=== PATIENT | male | born 1965 | race African-American/Black ===

== ENCOUNTER 2019-03-21 08:13 | Inpatient (IN) | payer MEDICARE, OTHER ==
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
[2019-03-21] MEDS ORDERED: DEXTROSE 50%-WATER 25 GM/50 ML DISP.SYRIN ONE ×2 (09:07→09:44)
[2019-03-21] MEDS ORDERED: DEXTROSE 50%-WATER - 25 GM/50 ML VIAL IVPUSH ONE ×3 (09:07→10:21)
[2019-03-21 09:13] LABS: BASO % 0.4 % (0-2.0); EOS % 2.2 % (0-4.5); HEMATOCRIT 28.5 % (35.4-49); HEMOGLOBIN 9.3 GM/dL (11.7-16.9); LYMPH % 35.1 % (8-40); MCH 29.3 pg (25.7-33.7); MCHC 32.7 g/dl (32.0-35.9); MEAN CELL VOLUME 89.7 fl (80-96); MONO % 12.4 % (3.8-10.2); NEUT % 49.9 % (42.8-82.8); PLATELET COUNT 191 K/MM3 (134-434); RBC 3.18 M/mm3 (4.00-5.60); RDW 13.8 % (11.9-15.9); WHITE BLOOD COUNT 4.8 K/mm3 (4.0-10.0)
[2019-03-21 09:17] VITALS: BMI 27.3
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
[2019-03-21] MEDS: DEXTROSE 5%-0.45% SALINE 1,000 ML IV SCH ×2 (10:25→22:33)
[2019-03-21 10:36] LABS: ALBUMIN 2.4 g/dl (3.4-5.0); ALK PHOS 73 U/L (45-117); ANION GAP 6 MMOL/L (8-16); BILIRUBIN,TOTAL 0.2 mg/dL (0.2-1); BLOOD UREA NITROGEN 46 mg/dL (7-18); CALCIUM 7.9 mg/dL (8.5-10.1); CHLORIDE 110 mmol/L (98-107); CO2 24 mmol/L (21-32); CREATININE 2.9 mg/dL (0.55-1.3); POTASSIUM 4.1 mmol/L (3.5-5.1); SGOT/AST 35 U/L (15-37); SGPT/ALT 28 U/L (13-61); SODIUM 140 mmol/L (136-145); TOT PROT 6.1 g/dl (6.4-8.2)
[2019-03-21 10:40] LABS: GLUCOSE,RANDOM 38 mg/dL (74-106)
[2019-03-21 10:55] LABS: COCAINE, UR NEGATIVE ng/ml (CUTOFF=300); METHADONE, UR NEGATIVE ng/ml (CUTOFF=300); OPIATES, URI NEGATIVE ng/ml (CUTOFF=300); PHENCYCLIDINE,URINE NEGATIVE ng/ml (CUTOFF=25); URINE AMPHETAMINES NEGATIVE ng/ml (CUTOFF=500); URINE BARBITURATES NEGATIVE ng/ml (CUTOFF=200); URINE BENZODIAZEPINES NEGATIVE ng/ml (CUTOFF=200)
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
--- NOTE | 2019-03-21 15:28 | EKG ---
Test Reason : Blood Pressure : / mmHG Vent. Rate : 078 BPM Atrial Rate : 078 BPM P-R Int : 154 ms QRS Dur : 092 ms QT Int : 406 ms P-R-T Axes : 055 024 094 degrees QTc Int : 462 ms NORMAL SINUS RHYTHM ABNORMAL QRS-T ANGLE, CONSIDER PRIMARY T WAVE ABNORMALITY ABNORMAL ECG NO PREVIOUS ECGS AVAILABLE Confirmed by MD Crowley Daniel ([id number]) on 03/21/2019 3:27:47 PM Referred By: Confirmed By:Allen Crowley MD
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
[2019-03-21] MEDS: INSULIN SLIDING SCALE (NOVOLOG) 1 VIAL SQ SCH ×2 (17:00→22:28)
[2019-03-21] MEDS ORDERED: HEPARIN NA (PORCINE) 5,000 UNITS/ML 1ML VIAL SQ SCH (18:00)
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
[2019-03-21] MEDS: CARVEDILOL 25 MG TABLET (FP) PO SCH (22:27)
[2019-03-21] MEDS: hydrALAZINE HCL 50 MG TABLET (FP) PO SCH (22:27)
[2019-03-21] MEDS: HEPARIN NA (PORCINE) 5,000 UNITS/ML 1ML VIAL SQ SCH (22:27)
[2019-03-21] MEDS: ATORVASTATIN CA 40 MG TABLET (FP) PO SCH (22:27)
[2019-03-21] MEDS: NIFEdipine E.R 60 MG TABLET (UD) PO SCH (22:28)
[2019-03-22] MEDS: INSULIN SLIDING SCALE (NOVOLOG) 1 VIAL SQ SCH ×4 (06:11→23:19)
[2019-03-22] MEDS: HEPARIN NA (PORCINE) 5,000 UNITS/ML 1ML VIAL SQ SCH ×3 (06:11→23:17)
[2019-03-22 08:17] LABS: BASO % 0.5 % (0-2.0); EOS % 2.3 % (0-4.5); HEMATOCRIT 25.8 % (35.4-49); HEMOGLOBIN 8.6 GM/dL (11.7-16.9); LYMPH % 38.8 % (8-40); MCH 29.7 pg (25.7-33.7); MCHC 33.4 g/dl (32.0-35.9); MEAN CELL VOLUME 88.8 fl (80-96); MEAN PLT VOLUME 8.2 fl (7.5-11.1); MONO % 11.2 % (3.8-10.2); NEUT % 47.2 % (42.8-82.8); PLATELET COUNT 181 K/MM3 (134-434); RDW 13.6 % (11.9-15.9); WHITE BLOOD COUNT 4.4 K/mm3 (4.0-10.0)
[2019-03-22 08:49] LABS: ALBUMIN 2.3 g/dl (3.4-5.0); BILIRUBIN,TOTAL 0.2 mg/dL (0.2-1); CALCIUM 7.5 mg/dL (8.5-10.1); MAGNESIUM 1.5 mg/dL (1.8-2.4); PHOSPHOROUS 4.4 mg/dL (2.5-4.9); POTASSIUM 3.9 mmol/L (3.5-5.1); TOT PROT 5.5 g/dl (6.4-8.2)
[2019-03-22] MEDS: hydrALAZINE HCL 50 MG TABLET (FP) PO SCH ×2 (09:36→23:17)
[2019-03-22] MEDS: CARVEDILOL 25 MG TABLET (FP) PO SCH ×2 (09:36→23:18)
[2019-03-22] MEDS: TAMSULOSIN HCL 0.4 MG CAP PO SCH (09:36)
[2019-03-22] MEDS: NIFEdipine E.R 60 MG TABLET (UD) PO SCH ×2 (09:37→23:19)
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
[2019-03-22] MEDS ORDERED: MAGNESIUM SULF 50% (8.12 MEQ/2 ML-1 GM VIAL) IVPB ONE (11:20)
[2019-03-22 11:28] LABS: EPI CELLS 1.4 /HPF (0-5/HPF); HYALINE CASTS 4 /lpf (0-8); URINE APPEARANCE CLEAR; URINE BACTERIA 54.5 /hpf (NEGATIVE); URINE BILIRUBIN NEGATIVE (NEGATIVE); URINE COLOR YELLOW; URINE GLUCOSE (UA) TRACE (NEGATIVE); URINE KETONE NEGATIVE (NEGATIVE); URINE LEUK ESTERASE 1+ (NEGATIVE); URINE NITRITE NEGATIVE (NEGATIVE); URINE PROTEIN 3+ (NEGATIVE); URINE RBC 3 /hpf (0-4); URINE WBC 27 /hpf (0-5)
--- NOTE | 2019-03-22 12:01 | CONSULT ---
Consult Consult Specialty:: Nephrology Reason for Consultation:: JOAQUINA - History of Present Illness Chief Complaint: change in mental status History of Present Illness: Pt is a 53 year old male with pmhx of DM, HTN, HLD, and BPH who was brought in to the hospital after [place] [address] [address] He was found to have elevated creatinine and I was called to evaluate him. He denies history of CKD. He is not a great historian. He does not remember being in the car or driving. He denies dysuria or hematuria. He denies nsaid use. - History Source History Provided By: Patient, Medical Record - Past Medical History Cardio/Vascular: Yes: HTN, Hyperlipdemia Renal/: Yes: BPH Endocrine: Yes: Diabetes Mellitus - Smoking History Smoking history: Unknown if ever smoked Home Medications - Allergies Allergies/Adverse Reactions: Allergies Allergy/AdvReac Type Severity Reaction Status Date / Time No Known Allergies Allergy Verified 03/21/19 11:33 - Home Medications Home Medications: Ambulatory Orders Atorvastatin Ca [Lipitor] 40 mg PO HS 03/21/19 Carvedilol [Coreg -] 25 mg PO BID 03/21/19 Cyclobenzaprine HCl [Flexeril -] 10 mg PO BID 03/21/19 Insulin Detemir [Levemir Flextouch] 0 unit SQ ASDIR 03/21/19 Labetalol HCl 600 mg PO BID 03/21/19 Nifedipine ER [Procardia Xl -] 60 mg PO BID 03/21/19 Nifedipine ER [Procardia Xl -] 90 mg PO ASDIR 03/21/19 Tamsulosin HCl [Flomax] 0.4 mg PO DAILY 03/21/19 hydrALAZINE HCL [Apresoline -] 50 mg PO BID 03/21/19 Family Disease History - Family Disease History Family History: Denies Review of Systems - Review of Systems Constitutional: reports: No Symptoms Eyes: reports: No Symptoms HENT: reports: No Symptoms Neck: reports: No Symptoms Cardiovascular: reports: No Symptoms Respiratory: reports: No Symptoms Gastrointestinal: reports: No Symptoms Genitourinary: reports: No Symptoms Musculoskeletal: reports: No Symptoms Integumentary: reports: No Symptoms Neurological: reports: Confusion Endocrine: reports: No Symptoms Hematology/Lymphatic: reports: No Symptoms Psychiatric: reports: No Symptoms Physical Exam Vital Signs: Vital Signs Temperature 98.2 F 03/22/19 08:00 Pulse Rate 90 03/22/19 08:00 Respiratory Rate 20 03/22/19 08:00 Blood Pressure 143/83 03/22/19 08:00 O2 Sat by Pulse Oximetry (%) 95 03/21/19 22:00 Constitutional: Yes: Calm Eyes: Yes: Conjunctiva Clear HENT: Yes: Atraumatic Neck: Yes: Supple Cardiovascular: Yes: S1, S2 Respiratory: Yes: CTA Bilaterally Gastrointestinal: Yes: Normal Bowel Sounds, Soft Renal/: Yes: WNL Musculoskeletal: Yes: WNL Edema: No Integumentary: Yes: WNL Neurological: Yes: Oriented Psychiatric: Yes: Oriented Labs: CBC, BMP 03/22/19 05:45 03/22/19 05:45 Laboratory Tests 03/21/19 03/21/19 03/21/19 08:40 08:40 09:46 Hgb 9.3 L Sodium Potassium Chloride Carbon Dioxide Anion Gap BUN Creatinine 2.9 H Urine Protein Salicylates < 1.7 L Acetaminophen < 2.0 L MDMA (Ecstasy) Screen Positive A* MDMA & Metabolite Benzodiazepines Screen Negative Cocaine Screen Negative Sulfonylureas 03/21/19 03/22/19 03/22/19 09:46 05:45 05:45 Hgb 8.6 L Sodium 143 Potassium 3.9 Chloride 111 H Carbon Dioxide 24 Anion Gap 8 BUN 49 H Creatinine 3.0 H Urine Protein Salicylates Acetaminophen MDMA (Ecstasy) Screen MDMA & Metabolite Pending Benzodiazepines Screen Cocaine Screen Sulfonylureas 03/22/19 03/22/19 05:45 10:56 Hgb Sodium Potassium Chloride Carbon Dioxide Anion Gap BUN Creatinine Urine Protein 3+ H Salicylates Acetaminophen MDMA (Ecstasy) Screen MDMA & Metabolite Benzodiazepines Screen Cocaine Screen Sulfonylureas Pending Imaging - Results Ultrasound: Report Reviewed Problem List - Problems (1) JOAQUINA (acute kidney injury) Code(s): N17.9 - ACUTE KIDNEY FAILURE, UNSPECIFIED (2) Altered mental state Code(s): R41.82 - ALTERED MENTAL STATUS, UNSPECIFIED (3) BPH (benign prostatic hyperplasia) Code(s): N40.0 - BENIGN PROSTATIC HYPERPLASIA WITHOUT LOWER URINRY TRACT SYMP (4) Dyslipidemia Code(s): E78.5 - HYPERLIPIDEMIA, UNSPECIFIED (5) Hypertension Code(s): I10 - ESSENTIAL (PRIMARY) HYPERTENSION Assessment/Plan Current Medications Generic Name Dose Route Start Last Admin Trade Name [place]as PRN Reason Stop Dose Admin Atorvastatin Calcium 40 mg 03/21/19 22:00 03/21/19 22:27 Lipitor - PO 40 mg HS NAM Administration Carvedilol 25 mg 03/21/19 22:00 03/22/19 09:36 Coreg - PO 25 mg BID NAM Administration Heparin Sodium (Porcine) 5,000 unit 03/21/19 22:00 03/22/19 06:11 Heparin - SQ 5,000 unit TID NAM Administration Hydralazine HCl 50 mg 03/21/19 22:00 03/22/19 09:36 Apresoline - PO 50 mg BID NAM Administration Insulin Aspart 1 vial 03/21/19 16:30 03/22/19 12:00 Novolog Vial Sliding Scale - SQ Not Given ACHS [facility] Protocol Nifedipine 60 mg 03/21/19 22:00 03/22/19 09:37 Procardia Xl - PO 60 mg BID NAM Administration Tamsulosin HCl 0.4 mg 03/22/19 08:30 03/22/19 09:36 Flomax - PO 0.4 mg DAILY@0830 NAM Administration Laboratory Tests 03/22/19 10:56 Urine Protein 3+ H Impression 1. JOAQUINA vs CKD 2. HTN 3. DM 4. BPH 5. 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
[2019-03-22 13:08] LABS: RATIO URIN PROTEIN/URIN CREAT 2.34 MG/DL
[2019-03-22] MEDS ORDERED: PNEUMOC 13-VAL CONJ-DIP CRM/PF 0.5 ML DISP.SYRIN IM ONE (14:12)
[2019-03-22] MEDS ORDERED: PNEUMOCOCCAL 23 VACCINE 0.5 ML VIAL IM ONE (14:45)
[2019-03-22] MEDS ORDERED: FLU VACCINE QUAD 60 MCG/0.5 ML (MDV 18-19) IM ONE (15:25)
[2019-03-22] MEDS: FLUTICASONE PROP 0.05% 16 GM NASAL SPRAY NS SCH (23:18)
[2019-03-22] MEDS: ATORVASTATIN CA 40 MG TABLET (FP) PO SCH (23:18)
[2019-03-23] MEDS: INSULIN SLIDING SCALE (NOVOLOG) 1 VIAL SQ SCH ×2 (06:39→11:35)
[2019-03-23] MEDS: HEPARIN NA (PORCINE) 5,000 UNITS/ML 1ML VIAL SQ SCH (06:40)
[2019-03-23 06:53] VITALS: BP 135/82; PULSE 88; TEMP 97.8
[2019-03-23 07:07] LABS: SERUM IRON SATURATION 31 % (15-55); TOTAL IRON BINDING CAPACITY 250 ug/dL (250-450); UIBC 173 ug/dL (111-343)
[2019-03-23] MEDS: TAMSULOSIN HCL 0.4 MG CAP PO SCH (09:09)
[2019-03-23] MEDS: NIFEdipine E.R 60 MG TABLET (UD) PO SCH (09:10)
[2019-03-23] MEDS: hydrALAZINE HCL 50 MG TABLET (FP) PO SCH (09:10)
[2019-03-23] MEDS: CARVEDILOL 25 MG TABLET (FP) PO SCH (09:10)
[2019-03-23] MEDS: FLUTICASONE PROP 0.05% 16 GM NASAL SPRAY NS SCH (09:11)
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
[2019-03-23 12:04] LABS: ALBUMIN 2.6 g/dl (3.4-5.0); BILIRUBIN,TOTAL 0.2 mg/dL (0.2-1); CALCIUM 8.3 mg/dL (8.5-10.1); CREATININE 2.7 mg/dL (0.55-1.3); MAGNESIUM 2.2 mg/dL (1.8-2.4); POTASSIUM 4.1 mmol/L (3.5-5.1); TOT PROT 6.3 g/dl (6.4-8.2)
--- NOTE | 2019-03-23 12:15 | PN ---
Progress Note, Physician History of Present Illness: Pt seen and examined at bedside. He is awake and appears comfortable. He denies shortness of breath. - Current Medication List Current Medications: Active Medications Atorvastatin Calcium (Lipitor -) 40 mg PO HS [facility] Last Admin: 03/22/19 23:18 Dose: 40 mg Carvedilol (Coreg -) 25 mg PO BID [facility] Last Admin: 03/23/19 09:10 Dose: 25 mg Fluticasone Propionate (Flonase -) 1 spray NS DAILY [facility] Last Admin: 03/23/19 09:11 Dose: 1 spray Heparin Sodium (Porcine) (Heparin -) 5,000 unit SQ TID [facility] Last Admin: 03/23/19 06:40 Dose: 5,000 unit Hydralazine HCl (Apresoline -) 50 mg PO BID [facility] Last Admin: 03/23/19 09:10 Dose: 50 mg Insulin Aspart (Novolog Vial Sliding Scale -) 1 vial SQ ACHS [facility]; Protocol Last Admin: 03/23/19 06:39 Dose: Not Given Nifedipine (Procardia Xl -) 60 mg PO BID [facility] Last Admin: 03/23/19 09:10 Dose: 60 mg Tamsulosin HCl (Flomax -) 0.4 mg PO DAILY@0830 [facility] Last Admin: 03/23/19 09:09 Dose: 0.4 mg - Objective Vital Signs: Vital Signs Temperature 97.8 F 03/23/19 06:00 Pulse Rate 88 03/23/19 06:00 Respiratory Rate 20 03/23/19 06:00 Blood Pressure 135/82 03/23/19 06:00 O2 Sat by Pulse Oximetry (%) 99 03/23/19 09:00 Constitutional: Yes: Calm Eyes: Yes: Conjunctiva Clear HENT: Yes: Atraumatic Cardiovascular: Yes: S1, S2 Respiratory: Yes: CTA Bilaterally Gastrointestinal: Yes: Normal Bowel Sounds, Soft Genitourinary: Yes: WNL Musculoskeletal: Yes: WNL Edema: Yes Edema: LLE: Trace, RLE: Trace Neurological: Yes: Oriented Psychiatric: Yes: Oriented Labs: CBC, BMP 03/22/19 05:45 03/23/19 11:21 Problem List - Problems (1) JOAQUINA (acute kidney injury) Code(s): N17.9 - ACUTE KIDNEY FAILURE, UNSPECIFIED (2) Altered mental state Code(s): R41.82 - ALTERED MENTAL STATUS, UNSPECIFIED (3) BPH (benign prostatic hyperplasia) Code(s): N40.0 - BENIGN PROSTATIC HYPERPLASIA WITHOUT LOWER URINRY TRACT SYMP (4) Dyslipidemia Code(s): E78.5 - HYPERLIPIDEMIA, UNSPECIFIED (5) Hypertension Code(s): I10 - ESSENTIAL (PRIMARY) HYPERTENSION Assessment/Plan Current Medications Generic Name Dose Route Start Last Admin Trade Name Freq PRN Reason Stop Dose Admin Atorvastatin Calcium 40 mg 03/21/19 22:00 03/22/19 23:18 Lipitor - PO 40 mg HS NAM Administration Carvedilol 25 mg 03/21/19 22:00 03/23/19 09:10 Coreg - PO 25 mg BID NAM Administration Fluticasone Propionate 1 spray 03/22/19 21:15 03/23/19 09:11 Flonase - NS 1 spray DAILY NAM Administration Heparin Sodium (Porcine) 5,000 unit 03/21/19 22:00 03/23/19 06:40 Heparin - SQ 5,000 unit TID NAM Administration Hydralazine HCl 50 mg 03/21/19 22:00 03/23/19 09:10 Apresoline - PO 50 mg BID NAM Administration Insulin Aspart 1 vial 03/21/19 16:30 03/23/19 06:39 Novolog Vial Sliding Scale - SQ Not Given ACHS [facility] Protocol Nifedipine 60 mg 03/21/19 22:00 03/23/19 09:10 Procardia Xl - PO 60 mg BID NAM Administration Tamsulosin HCl 0.4 mg 03/22/19 08:30 03/23/19 09:09 Flomax - PO 0.4 mg DAILY@0830 NAM Administration Laboratory Tests 03/22/19 12:35 Protein/Creatinin Ratio 2.340 Laboratory Tests 03/22/19 10:56 Urine Protein 3+ H Urine Blood Negative Impression 1. JOAQUINA vs CKD 2. HTN 3. DM 4. BPH 5. 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
--- NOTE | 2019-03-23 14:14 | DS ---
Physical Exam: SUBJECTIVE: Patient seen and examined. Pt. denies getting any sleep overnight because of noise. Pt endorses a dry cough. Pt. states he does not have ADD/ADHD and was never diagnosed with those disorders. Pt. states he tripped and fell 2 weeks ago but states it was a mechanical fall. Pt. states when askd if he felt lightheaded or dizzy, "nothing that I can't live with." Pt. denied further questioning of dizziness. OBJECTIVE: Vital Signs Period Temp Pulse Resp BP Sys/Marquez Pulse Ox Last 24 Hr 97.8 F-99.0 F 86-98 20-20 108-159/60-90 96-99 PHYSICAL EXAM GENERAL: The patient is awake, alert, and fully oriented, in no acute distress. HEAD: Normal with no signs of trauma. EYES: Sclera anicteric, conjunctiva clear. ENT: Ears normal, nares patent, oropharynx clear without exudates, moist mucous membranes. NECK: Trachea midline, no carotid bruit, full range of motion, supple. LUNGS: Breath sounds equal, clear to auscultation bilaterally, no wheezes, no crackles, no accessory muscle use. HEART: Regular rate and rhythm, S1, S2 without murmur EXTREMITIES: 2+ dorsal pedal pulses, warm, well-perfused, no calf tenderness, no edema, healing wound on R. stacy. NEUROLOGICAL: Normal speech, gait not observed. PSYCH: Normal mood, normal affect. SKIN: Warm, dry, normal turgor, no rashes or lesions noted. LABS Laboratory Results - last 24 hr 03/21/19 03/21/19 03/21/19 09:05 09:42 10:15 Sodium Potassium Chloride Carbon Dioxide Anion Gap BUN Creatinine Est GFR (CKD-EPI)AfAm Est GFR (CKD-EPI)NonAf POC Glucometer 38 70 64 Random Glucose Insulin Level Calcium Magnesium Iron TIBC Iron Saturation Total Bilirubin AST ALT Alkaline Phosphatase Total Protein Albumin Ur Random Potassium 03/21/19 03/21/19 03/21/19 11:29 12:43 15:14 Sodium Potassium Chloride Carbon Dioxide Anion Gap BUN Creatinine Est GFR (CKD-EPI)AfAm Est GFR (CKD-EPI)NonAf POC Glucometer 75 95 87 Random Glucose Insulin Level Calcium Magnesium Iron TIBC Iron Saturation Total Bilirubin AST ALT Alkaline Phosphatase Total Protein Albumin Ur Random Potassium 03/21/19 03/22/1903/22/19 17:07 05:45 05:45 Sodium Potassium Chloride Carbon Dioxide Anion Gap BUN Creatinine Est GFR (CKD-EPI)AfAm Est GFR (CKD-EPI)NonAf POC Glucometer 102 Random Glucose Insulin Level 4.9 Calcium Magnesium Iron 77 TIBC 250 Iron Saturation 31 Total Bilirubin AST ALT Alkaline Phosphatase Total Protein Albumin Ur Random Potassium 03/22/19 03/22/19 03/22/19 12:35 16:41 18:24 Sodium Potassium Chloride Carbon Dioxide Anion Gap BUN Creatinine Est GFR (CKD-EPI)AfAm Est GFR (CKD-EPI)NonAf POC Glucometer 129 138 Random Glucose Insulin Level Calcium Magnesium Iron TIBC Iron Saturation Total Bilirubin AST ALT Alkaline Phosphatase Total Protein Albumin Ur Random Potassium 43.2 03/22/19 03/23/19 03/23/19 23:15 01:27 02:58 Sodium Potassium Chloride Carbon Dioxide Anion Gap BUN Creatinine Est GFR (CKD-EPI)AfAm Est GFR (CKD-EPI)NonAf POC Glucometer 116 127 139 Random Glucose Insulin Level Calcium Magnesium Iron TIBC Iron Saturation Total Bilirubin AST ALT Alkaline Phosphatase Total Protein Albumin Ur Random Potassium 03/23/19 03/23/19 03/23/19 06:39 09:13 11:21 Sodium 143 Potassium 4.1 Chloride 113 H Carbon Dioxide 23 Anion Gap 6 L BUN 48 H Creatinine 2.7 H Est GFR (CKD-EPI)AfAm 30.26 Est GFR (CKD-EPI)NonAf 26.11 POC Glucometer 128 128 Random Glucose 124 H Insulin Level Calcium 8.3 L Magnesium 2.2 Iron TIBC Iron Saturation Total Bilirubin 0.2 AST 22 ALT 27 Alkaline Phosphatase 63 Total Protein 6.3 L Albumin 2.6 L Ur Random Potassium 03/23/19 11:30 Sodium Potassium Chloride Carbon Dioxide Anion Gap BUN Creatinine Est GFR (CKD-EPI)AfAm Est GFR (CKD-EPI)NonAf POC Glucometer 125 Random Glucose Insulin Level Calcium Magnesium Iron TIBC Iron Saturation Total Bilirubin AST ALT Alkaline Phosphatase Total Protein Albumin Ur Random Potassium HOSPITAL COURSE: Date of Admission:03/21/19 Date of Discharge: 03/23/19 Pt. is a 53 y.o. M admitted for acute metabolic encephalopathy secondary to hypoglycemia secondary to dual beta daniel, insulin and Ecstasy use. UTox was positive for Ecstasy. CT Head was negative for acute pathology, however air at the level of the foramen magnum was noted. On repeat imaging with MRI/MRA no acute pathology including air was noted. Consults to Neurology (Dr. Pittman) and Neurosurgery (Dr. Dailey) appreciated. CT Spine (C/T/L/S) showed no further air collections, or acute pathology. Pt. noted to have degenerative disc disease without spinal cord involvment in the cervical spine. Pulmonary nodules were noted on thoracic spine CT and metastases cold not be excluded. Pt. found to have JOAQUINA on CKD. Renal US sowed bilateral cortical cysts. Nephrology consult (Dr. Ybarra) appreciated. Pt. encouraged to follow up with PCP an specialist as detailed below for further monitoring of nodules, renal function, HTN and Diabetes. Medication adjustments were made as detailed below. Hospital course discussed and agreed upon with Pt. and medical staff. Minutes to complete discharge: 35 Discharge Summary Reason For Visit: ACUTE KIDNEY INJURY/HYPOGLYCEMIA Current Active Problems JOAQUINA (acute kidney injury) (Acute) Altered mental state (Acute) BPH (benign prostatic hyperplasia) (Acute) Global amnesia (Acute) Hypertension (Acute) Hypoglycemia (Acute) Dyslipidemia (Chronic) Condition: Improved - Instructions Diet, Activity, Other Instructions: You came in for confusion and low blood glucose. We treated you with IV Dextrose and antibiotics. We imaged your head and found that you had tiny pockets of air in the skull base , on repeat imaging there was no air seen. We imaged your spine and did not find any acute pathology. We imaged your kidneys and found that you have small cysts( not harmful or blocking anything at this time), we did see some fluid in your lungs that indicates you have heart condition. We did an MRI if your brain and did not find any immediate problems, We found that you had Ectasy in your system. Please STOP taking ecstasy as this can cause heart problems including heart attack and . We found that you have some kidney dysfunction. We are discontinuing your Insulin as your Diabetes number is 5.4% (A1c). Please do not take any more insulin until you follow up with your Primary Care Physician. We are discontinuing your Labetalol because it likely helped contribute to your low blood sugar, please do not take any more until you follow up with your PCP to discuss further management. Please follow up with your Primary Care Physician within 1 week. If you do not haev one we have provided Dr. Andrews. Please follow up with your Pressurization Mechanic within 1 week. Please follow up with your Gaming Table Operator, Dr. Ybarra within 1 week to discuss your kidney dysfunction and potentially starting some new medications. Please follow up with Neurosurgeon, Dr. Dailey, to discuss the MRI results and the tiny pockets of air found on head imaging along your spine. Please follow up with Neurologist, Dr. Pittman, within 1 week. Please return to the ED if you are having worsening confusion, chest pain, shortness of breath or any concerning symptoms,. Referrals: Osmel Dailey MD [Staff Physician] - 1 Week Jak Pittman MD [Staff Physician] - 1 Week ON STAFF,NOT [Non Staff, Medical] - 1 Week Yohannes Ybarra MD [Staff Physician] - 1 Week Disposition: HOME - Home Medications Comprehensive Discharge Medication List: Ambulatory Orders Atorvastatin Ca [Lipitor] 40 mg PO HS 03/21/19 Carvedilol [Coreg -] 25 mg PO BID 03/21/19 Cyclobenzaprine HCl [Flexeril -] 10 mg PO BID 03/21/19 Nifedipine ER [Procardia XL -] 60 mg PO BID 03/21/19 Nifedipine ER [Procardia XL -] 90 mg PO ASDIR 03/21/19 Tamsulosin HCl [Flomax] 0.4 mg PO DAILY 03/21/19 hydrALAZINE HCL [Apresoline -] 50 mg PO BID 03/21/19 This patient is new to me today: Yes Date on this admission: 03/23/19 Emergency Visit: Yes ED Registration Date: 03/21/19 Care time: The patient presented to the Emergency Department on the above date and was hospitalized for further evaluation of their emergent condition. Critical Care patient: No - Discharge Referral Referred to [facility] Med P.C.: No
--- NOTE | 2019-03-23 18:24 | PN ---
Progress Note (short form) - Note Progress Note: NEUROSURGERY Care d/w Dr Solis PE: AF, VSS HEENT- NC/AT, no CSF rhinorrhea or otorrhea; Neck- supple; Cor- RR; Lungs- CTA B ; Abd- benign; Ext- mild R wrist iv site edema; no sign of DVT A/A/Ox4 speech fluent CN- intact; Motor- 5/5 without druft; Sensation- mildly decreased distal LE vibration; DTR- hyporeflexic; Cerebellar- intact Head CT- subarachnoid air in anterior and lateral foramen magnum region and ? parasellar region; air sinuses including sphenoid clear of fluid; no obvious basal skull fx C spine CT - no clear air collection, mild spondylosis and DDD, no fx T spine CT - mild spondylolosis and bridging osteophyte LS spine CT - no fx Brain MRI- no acute ischemia, no parenchymal lesion or edema; no obvious skull base lesion MRA brain- no aneurysm or AVM Minimal anterior foramen magnum level small amount of pneumocephalus, resolved No focal deficits F/u outpatient with neurology
== END 2019-03-23 14:46 | disposition home or self-care (01) | DRG 420 ==
LOC: JER 08:13 → JERBED 12:01 → J4W 18:20
DX: E11.649 Type 2 diabetes mellitus with hypoglycemia without coma (principal); G93.41 Metabolic encephalopathy; N40.0 Benign prostatic hyperplasia without lower urinary tract symptoms; E78.5 Hyperlipidemia, unspecified; N17.9 Acute kidney failure, unspecified; D64.9 Anemia, unspecified; M54.9 Dorsalgia, unspecified; R41.82 Altered mental status, unspecified; E83.42 Hypomagnesemia; I12.9 Hypertensive chronic kidney disease with stage 1 through stage 4 chronic kidney disease, or unspecified chronic kidney disease; E11.22 Type 2 diabetes mellitus with diabetic chronic kidney disease; N18.9 Chronic kidney disease, unspecified; F19.90 Other psychoactive substance use, unspecified, uncomplicated; G93.89 Other specified disorders of brain; M47.894 Other spondylosis, thoracic region
CPT/HCPCS: 36415; 70450-TC; 70544-TC; 70551-TC; 71045-TC-FY; 72125-TC; 72128-TC; 72131-TC; 76775-TC; 80053; 80307; 81003; 82436; 82542; 82550; 82553; 82565; 82570; 82607; 82728; 82746; 82962; 83036; 83525; 83540; 83550; 83735; 84100; 84133; 84156; 84300; 84466; 84484; 85025; 90688; 90732; 93005; 93010; 99283-25; G0008; G0009; G0480; J1644